=== PATIENT | female | born 1995 | race Hispanic/Latino ===

== ENCOUNTER 2019-11-28 18:49 | Inpatient (IN) | payer SELFPAY ==
[2019-11-28] MEDS ORDERED: NALOXONE 2 MG/2 ML INJ ONE (18:52)
[2019-11-28] MEDS ORDERED: ETOMIDATE 20 MG/10 ML INJ IV ONE (19:00)
[2019-11-28] MEDS ORDERED: ROCURONIUM 50 MG/5 ML INJ IV ONE (19:00)
[2019-11-28] MEDS ORDERED: SODIUM CHLORIDE 0.9% 1000 ML 1,000 ML IV ONE ×2 (19:07→20:16)
[2019-11-28] MEDS ORDERED: MINERAL OIL/PETROLATUM, WHITE OPHTH OINT 3.5 GM OU PRN (19:08)
[2019-11-28] MEDS ORDERED: LIP THERAPY VASELINE TP PRN (19:08)
--- NOTE | 2019-11-28 19:10 | Emergency Department Report ---
ED Altered Mental Status HPI - General Chief Complaint: Altered Mental Status Stated Complaint: AMS PUI?: No Time Seen by Provider: 11/28/19 18:49 Source: EMS Mode of arrival: Stretcher Limitations: Altered Mental Status, Physical Limitation - History of Present Illness Initial Comments: Patient is a 24-year-old female that presents emergency room with possible overdose and altered mental status. Patient is minimally responsive. Patient brought in by EMS. EMS report received. EMS states that the [place] the [place] un[place]. Patient given 3 mg of Narcan with no response by EMS. Patient has an IV. MD Complaint: altered mental status, decreased responsiveness -: Sudden Severity: severe Consistency of Symptoms: getting worse Context: drug abuse - Related Data Allergies Allergy/AdvReac Type Severity Reaction Status Date / Time Unable to Assess Allergy Unverified 11/28/19 19:38 ED Review of Systems ROS: Stated complaint: AMS Other details as noted in HPI Comment: Unobtainable due to pts medical conditions ED Past Medical Hx - Past Medical History Previous Medical History?: No - Surgical History Past Surgical History?: No - Family History Family history: no significant - Social History Smoking Status: Unknown if ever smoked Substance Use Type: Other ED Physical Exam - General General appearance: obtunded - Head Head exam: Present: atraumatic, normocephalic - Eye Eye exam: Present: normal appearance, other (Pupils fixed and pinpoint) - ENT ENT exam: Present: mucous membranes dry - Neck Neck exam: Present: normal inspection - Respiratory Respiratory exam: Present: decreased breath sounds. Absent: respiratory distress, wheezes - Cardiovascular Cardiovascular Exam: Present: regular rate, normal rhythm. Absent: systolic murmur, diastolic murmur, rubs, gallop - GI/Abdominal GI/Abdominal exam: Present: soft, normal bowel sounds - Rectal Rectal exam: Present: deferred - Extremities Exam Extremities exam: Present: normal inspection - Back Exam Back exam: Present: normal inspection - Neurological Exam Neurological exam: Present: altered - Expanded Neurological Exam Expanded Best Eye Response ([place]): (1) no response Best Motor Response ([place]): (1) no motor response Best Verbal Response ([place]): (1) no verbal response [place] Total: 3 - Skin Skin exam: Present: warm, dry, intact, normal color. Absent: rash - Assessment Assessment Interval: Baseline - Level of Consciousness 1a. Level of Consciousness: coma/unresponsive - LOC Questions 1b. LOC Questions: aphasic - LOC Command 1c. LOC Commands: performs no tasks correctly - Best Gaze 2. Best Gaze: normal - Visual 3. Visual: no visual loss - Facial Palsy 4. Facial Palsy: normal symmetrical movement - Motor Arm 5a. Motor Arm Left: no movement 5b. Motor Arm Right: no movement - Motor Leg 6a. Motor Leg Left: no movement 6b. Motor Leg Right: no movement - Limb Ataxia 7. Limb Ataxia: absent - Sensory 8. Sensory: coma/unresponsive - Best Language 9. Best Language: coma/unresponsive - Dysarthria 10. Dysarthria: intubated or other barrier - Extinction and Inattention 11. Extinction/Inattention: no abnormality - Scoring Total Score: 28 Stroke Severity: Severe Stroke ED Course Vital Signs 11/28/19 11/28/19 11/28/19 18:55 19:00 19:15 Pulse Rate 90 86 86 Respiratory 15 15 21 Rate Blood Pressure Blood Pressure 110/62 114/63 136/99 [Left] O2 Sat by Pulse 95 97 100 Oximetry 11/28/19 11/28/19 11/28/19 19:35 19:46 19:48 Pulse Rate 86 91 H 88 Respiratory 22 20 Rate Blood Pressure 136/99 136/99 131/93 Blood Pressure [Left] O2 Sat by Pulse 100 100 Oximetry 11/28/19 11/28/19 11/28/19 20:00 20:14 20:15 Pulse Rate 90 88 87 Respiratory 21 22 Rate Blood Pressure 131/93 139/97 Blood Pressure [Left] O2 Sat by Pulse 100 100 Oximetry 11/28/19 11/28/19 11/28/19 20:45 21:00 21:15 Pulse Rate 83 81 80 Respiratory 22 22 22 Rate Blood Pressure 136/93 138/99 132/94 Blood Pressure [Left] O2 Sat by Pulse 100 100 Oximetry 11/28/19 11/28/19 11/28/19 21:30 21:45 22:00 Pulse Rate 80 82 89 Respiratory 22 22 22 Rate Blood Pressure 126/83 142/95 143/95 Blood Pressure [Left] O2 Sat by Pulse 100 100 Oximetry 11/28/19 11/28/19 11/28/19 22:15 22:30 22:45 Pulse Rate 79 79 77 Respiratory 22 22 22 Rate Blood Pressure 142/97 142/99 143/102 Blood Pressure [Left] O2 Sat by Pulse 100 100 Oximetry 11/28/19 11/28/19 11/28/19 23:00 23:15 23:30 Pulse Rate 81 85 85 Respiratory 22 22 22 Rate Blood Pressure 143/101 142/100 138/93 Blood Pressure [Left] O2 Sat by Pulse 100 100 100 Oximetry 11/29/19 00:17 Pulse Rate 87 Respiratory Rate Blood Pressure 140/94 Blood Pressure [Left] O2 Sat by Pulse 100 Oximetry - Reevaluation(s) Reevaluation #1: Initial evaluation done. Patient minimally responsive. Patient will be intub ated to protect airway. Prior to intubation patient was given 2 more milligrams of Narcan for a total of 5 with no response. Patient has no deep nerve response. Patient completely unresponsive. Patient's GCS is 3. 11/28/19 19:01 Reevaluation #2: Patient back from CT scan. Patient placed on a Ativan drip. Patient still moving. 11/28/19 19:45 Reevaluation #3: Patient still moving. Patient placed on a propofol drip and the patient is resting comfortably. 11/28/19 20:12 - Consultations Consultation #1: Hospitalist consulted for admission. Hospitalist to admit patient. 11/28/19 20:11 - EJ/Peripheral Line Neck L Time Out Performed: Yes Indications: nurses unable to establis Skin Cleansed in Sterile Fashion: Yes Size: 18 Dressing Placed: Tegaderm, tape Patient Tolerated Procedure: well, no complications - Lab Data Result diagrams: 11/28/19 19:23 11/28/19 19:23 Lab Results 11/28/19 11/28/19 11/28/19 Range/Units 19:23 19:23 19:23 WBC 5.6 (4.5-11.0) K/mm3 RBC 4.45 (3.65-5.03) M/mm3 Hgb 10.2 (10.1-14.3) gm/dl Hct 33.1 (30.3-42.9) % MCV 74 L (79-97) fl MCH 23 L (28-32) pg MCHC 31 (30-34) % RDW 22.1 H (13.2-15.2) % Plt Count 295 (140-440) K/mm3 Lymph % (Auto) 29.5 (13.4-35.0) % [place] % (Auto) 5.4 (0.0-7.3) % Eos % (Auto) 2.7 (0.0-4.3) % Baso % (Auto) 0.4 (0.0-1.8) % Lymph # 1.6 (1.2-5.4) K/mm3 [place] # 0.3 (0.0-0.8) K/mm3 Eos # 0.2 (0.0-0.4) K/mm3 Baso # 0.0 (0.0-0.1) K/mm3 Seg Neutrophils % 62.0 (40.0-70.0) % Seg Neutrophils # 3.5 (1.8-7.7) K/mm3 Sodium 142 (137-145) mmol/L Potassium 3.7 (3.6-5.0) mmol/L Chloride 109.1 H (98-107) mmol/L Carbon Dioxide 21 L (22-30) mmol/L Anion Gap 16 mmol/L BUN 14 (7-17) mg/dL Creatinine 0.8 (0.7-1.2) mg/dL Estimated GFR > 60 ml/min BUN/Creatinine Ratio 18 % Glucose 90 (65-100) mg/dL Lactic Acid 1.20 (0.7-2.0) mmol/L Calcium 8.2 L (8.4-10.2) mg/dL Total Bilirubin < 0.20 (0.1-1.2) mg/dL AST 13 (5-40) units/L ALT 7 (7-56) units/L Alkaline Phosphatase 56 (35-129) units/L Ammonia (25-60) umol/L Total Creatine Kinase 59 (30-135) units/L Troponin T < 0.010 (0.00-0.029) ng/mL Total Protein 6.0 L (6.3-8.2) g/dL Albumin 3.7 L (3.9-5) g/dL Albumin/Globulin Ratio 1.6 % Salicylates (2.8-20.0) mg/dL Acetaminophen (10.0-30.0) ug/mL Plasma/Serum Alcohol (0-0.07) % 11/28/19 11/28/19 11/28/19 Range/Units 19:23 19:23 19:23 WBC (4.5-11.0) K/mm3 RBC (3.65-5.03) M/mm3 Hgb (10.1-14.3) gm/dl Hct (30.3-42.9) % MCV (79-97) fl MCH (28-32) pg MCHC (30-34) % RDW (13.2-15.2) % Plt Count (140-440) K/mm3 Lymph % (Auto) (13.4-35.0) % [place] % (Auto) (0.0-7.3) % Eos % (Auto) (0.0-4.3) % Baso % (Auto) (0.0-1.8) % Lymph # (1.2-5.4) K/mm3 [place] # (0.0-0.8) K/mm3 Eos # (0.0-0.4) K/mm3 Baso # (0.0-0.1) K/mm3 Seg Neutrophils % (40.0-70.0) % Seg Neutrophils # (1.8-7.7) K/mm3 Sodium (137-145) mmol/L Potassium (3.6-5.0) mmol/L Chloride (98-107) mmol/L Carbon Dioxide (22-30) mmol/L Anion Gap mmol/L BUN (7-17) mg/dL Creatinine (0.7-1.2) mg/dL Estimated GFR ml/min BUN/Creatinine Ratio % Glucose (65-100) mg/dL Lactic Acid (0.7-2.0) mmol/L Calcium (8.4-10.2) mg/dL Total Bilirubin (0.1-1.2) mg/dL AST (5-40) units/L ALT (7-56) units/L Alkaline Phosphatase (35-129) units/L Ammonia 59.0 (25-60) umol/L Total Creatine Kinase (30-135) units/L Troponin T (0.00-0.029) ng/mL Total Protein (6.3-8.2) g/dL Albumin (3.9-5) g/dL Albumin/Globulin Ratio % Salicylates < 0.3 L (2.8-20.0) mg/dL Acetaminophen < 5.0 L (10.0-30.0) ug/mL Plasma/Serum Alcohol (0-0.07) % 11/28/19 Range/Units 19:23 WBC (4.5-11.0) K/mm3 RBC (3.65-5.03) M/mm3 Hgb (10.1-14.3) gm/dl Hct (30.3-42.9) % MCV (79-97) fl MCH (28-32) pg MCHC (30-34) % RDW (13.2-15.2) % Plt Count (140-440) K/mm3 Lymph % (Auto) (13.4-35.0) % [place] % (Auto) (0.0-7.3) % Eos % (Auto) (0.0-4.3) % Baso % (Auto) (0.0-1.8) % Lymph # (1.2-5.4) K/mm3 [place] # (0.0-0.8) K/mm3 Eos # (0.0-0.4) K/mm3 Baso # (0.0-0.1) K/mm3 Seg Neutrophils % (40.0-70.0) % Seg Neutrophils # (1.8-7.7) K/mm3 Sodium (137-145) mmol/L Potassium (3.6-5.0) mmol/L Chloride (98-107) mmol/L Carbon Dioxide (22-30) mmol/L Anion Gap mmol/L BUN (7-17) mg/dL Creatinine (0.7-1.2) mg/dL Estimated GFR ml/min BUN/Creatinine Ratio % Glucose (65-100) mg/dL Lactic Acid (0.7-2.0) mmol/L Calcium (8.4-10.2) mg/dL Total Bilirubin (0.1-1.2) mg/dL AST (5-40) units/L ALT (7-56) units/L Alkaline Phosphatase (35-129) units/L Ammonia (25-60) umol/L Total Creatine Kinase (30-135) units/L Troponin T (0.00-0.029) ng/mL Total Protein (6.3-8.2) g/dL Albumin (3.9-5) g/dL Albumin/Globulin Ratio % Salicylates (2.8-20.0) mg/dL Acetaminophen (10.0-30.0) ug/mL Plasma/Serum Alcohol < 0.01 (0-0.07) % - EKG Data -: EKG Interpreted by Me EKG shows normal: sinus rhythm, axis, intervals, QRS complexes, ST-T waves Rate: normal - Radiology Data Radiology results: report reviewed, image reviewed interpreted by me: Satisfactory placement of the ET tube on x-ray. NONENHANCED CT SCAN OF THE HEAD: INDICATION / CLINICAL INFORMATION: 89 years Female; MAIN. TECHNIQUE: Routine CT head without contrast. All CT scans at this location are performed using CT dose reduction for ALARA by means of automated exposure control. COMPARISON: None. FINDINGS: BRAIN / INTRACRANIAL CONTENTS: No acute hemorrhage, mass effect, midline shift, hydrocephalus, or acute, large territorial infarct. No chronic infarct or focal atrophy. Normal brain volume and ventricular/sulcal size for age. No significant white matter abnormality. CRANIOCERVICAL JUNCTION: No significant abnormality. ORBITS: No significant abnormality of visualized orbits. SINUSES / MASTOIDS: No significant abnormality of the visualized paranasal sinuses or mastoid air cells. ADDITIONAL FINDINGS: None. IMPRESSION: Normal nonenhanced CT scan of the brain CHEST 1 VIEW INDICATION / CLINICAL INFORMATION: ETT placement. COMPARISON: None available. FINDINGS: SUPPORT DEVICES: Endotracheal tube is present with the tip 3.5 cm above the c robert. NG tube is also present although the tip is not included on this radiograph. The tip is at l east within the proximal portion of the stomach. HEART / MEDIASTINUM: No significant abnormality. LUNGS / PLEURA: No significant pulmonary or pleural abnormality. No pneumothorax. ADDITIONAL FINDINGS: No significant additional findings. IMPRESSION: 1. Satisfactory positioning of endotracheal tube. 2. No acute pulmonary or pleural disease. - Medical Decision Making Patient is a 24-year-old female that presents emergency room with EMS for unresponsiveness. Patient was found in a park by the police and the police called EMS. EMS gave the patient 3 of Narcan and we gave the patient another 2 of Narcan and no response. Patient is minimally responsive. Patient intubated immediately to protect her airway. Patient placed on vent and patient was given an Ativan drip. Patient then started to wake up and the patient was placed on a propofol drip. Patient rested comfortably with the propofol drip and the Ativan drip. Patient's labs unremarkable except for urine drug screen positive for benzo, amphetamines, THC. Patient given fluids in the emergency room. Patient had a chest x-ray which showed satisfactory placement of the ET tube. Patient had a head CT which showed no acute findings. Clinical findings are consistent with altered mental status, unresponsiveness, suspected overdose. Patient admitted to the ICU and to the hospitalist service. - Differential Diagnosis Overdose, altered mental status, unresponsive Critical Care Time: Yes Critical care time in (mins) excluding proc time.: 55 Critical care attestation.: If time is entered above; I have spent that time in minutes in the direct care of this critically ill patient, excluding procedure time. Critical Care Time: 55 minutes ED Disposition Clinical Impression: Unresponsive, Acute hypoxemic respiratory failure, Metabolic encephalopathy Altered mental state Qualifiers: Altered mental status type: unspecified Qualified Code(s): R41.82 - Altered mental status, unspecified Overdose Qualifiers: Encounter type: initial encounter Injury intent: undetermined intent Qualified Code(s): T50.904A - Poisoning by unspecified drugs, medicaments and biological substances, undetermined, initial encounter UTI (urinary tract infection) Qualifiers: Urinary tract infection type: acute cystitis Hematuria presence: with hematuria Qualified Code(s): N30.01 - Acute cystitis with hematuria Disposition: 09 OP ADMIT IP TO THIS HOSP Is pt being admited?: Yes Does the pt Need Aspirin: No Condition: Critical Time of Disposition: 20:15
[2019-11-28 19:33] LABS: Basophils % (Auto) 0.4 % (0.0-1.8); Eosinophils # (Auto) 0.2 K/mm3 (0.0-0.4); Eosinophils % (Auto) 2.7 % (0.0-4.3); Hematocrit 33.1 % (30.3-42.9); Hemoglobin 10.2 gm/dl (10.1-14.3); Lymphocytes # (Auto) 1.6 K/mm3 (1.2-5.4); Lymphocytes % (Auto) 29.5 % (13.4-35.0); Mean Corpuscular HGB Conc 31 % (30-34); Mean Corpuscular Volume 74 fl (79-97); Monocytes # (Auto) 0.3 K/mm3 (0.0-0.8); Monocytes % (Auto) 5.4 % (0.0-7.3); Platelet Count 295 K/mm3 (140-440); Red Blood Count 4.45 M/mm3 (3.65-5.03)
--- NOTE | 2019-11-28 19:41 | XRay Report ---
CHEST 1 VIEW INDICATION / CLINICAL INFORMATION: ETT placement. COMPARISON: None available. FINDINGS: SUPPORT DEVICES: Endotracheal tube is present with the tip 3.5 cm above the hari. NG tube is also p resent although the tip is not included on this radiograph. The tip is at least within the proximal p ortion of the stomach. HEART / MEDIASTINUM: No significant abnormality. LUNGS / PLEURA: No significant pulmonary or pleural abnormality. No pneumothorax. ADDITIONAL FINDINGS: No significant additional findings. IMPRESSION: 1. Satisfactory positioning of endotracheal tube. 2. No acute pulmonary or pleural disease. Signer Name: Kemi Lawton MD Signed: 11/28/2019 7:36 PM Workstation Name: [id number]
[2019-11-28 19:43] LABS: Red Cell Distribution Width 22.1 % (13.2-15.2)
[2019-11-28] MEDS: LORazepam 2 MG/ML VIAL IV PRN ×2 (19:46→20:02)
[2019-11-28] MEDS ORDERED: MIDAZOLAM 5 MG/5 ML INJ MDV IV NR (19:50)
[2019-11-28 19:54] LABS: Alanine Aminotransferase 7 units/L (7-56); Albumin 3.7 g/dL (3.9-5); BUN/Creatinine Ratio 18; Blood Urea Nitrogen 14 mg/dL (7-17); Calcium 8.2 mg/dL (8.4-10.2); Hemolysis Index 11
[2019-11-28] MEDS ORDERED: MIDAZOLAM 5 MG/5 ML INJ MDV IV ONE (19:54)
--- NOTE | 2019-11-28 19:56 | Cat Scan Report ---
NONENHANCED CT SCAN OF THE HEAD: INDICATION / CLINICAL INFORMATION: 89 years Female; MAIN. TECHNIQUE: Routine CT head without contrast. All CT scans at this location are performed using CT dos e reduction for ALARA by means of automated exposure control. COMPARISON: None. FINDINGS: BRAIN / INTRACRANIAL CONTENTS: No acute hemorrhage, mass effect, midline shift, hydrocephalus, or ac song, large territorial infarct. No chronic infarct or focal atrophy. Normal brain volume and ventricu lar/sulcal size for age. No significant white matter abnormality. CRANIOCERVICAL JUNCTION: No significant abnormality. ORBITS: No significant abnormality of visualized orbits. SINUSES / MASTOIDS: No significant abnormality of the visualized paranasal sinuses or mastoid air supriya ls. ADDITIONAL FINDINGS: None. IMPRESSION: Normal nonenhanced CT scan of the brain Signer Name: Mars Rubalcava MD Signed: 11/28/2019 7:51 PM Workstation Name: [id number]
[2019-11-28] MEDS: LORazepam 100 MG in SODIUM CHLORIDE 0.9% 50 ML, EMPTY BAG 0 ML IV SCH (20:05)
--- NOTE | 2019-11-28 20:14 | History and Physical Report ---
History of Present Illness Chief complaint: Unresponsive History of present illness: 24 YO Female presents to ED for evaluation. Patient is intubated and on ventilatory support at the time of my evaluation and is unable to provide history at the time of my evaluation. Patient history taken from EMS staff, and ED staff. As per staff, the patient was found down and unresponsive after a call to EMS. Upon arrival the patient was found to be in distress and subsequently transported to [facility] for further care and evaluation. Patient seen and evaluated in the emergency department. Lab and imaging studies reviewed. Patient was found to be in distress and I able to protect her airway. Patient intubated and placed on ventilatory support. Patient also found to have metabolic encephalopathy suspected secondary to possible drug overdose. Patient admitted to critical care unit. Critical care team noted consulted in ED. No further history obtainable. No prior admission for review. No medication listed at time of my admission for reconciliation. Past History Past Medical History: No medical history, other (Unable to obtain) Past Surgical History: No surgical history, Other (Unable to obtain) Social history: no significant social history, other (Unable to obtain) Family history: no significant family history, other (Unable to obtain) Medications and Allergies Allergies Allergy/AdvReac Type Severity Reaction Status Date / Time Unable to Assess Allergy Unverified 11/28/19 19:38 Active Meds: Active Medications Hydrophilic Ointment (Vaseline Lip Therapy) 1 applic TP Q2HR PRN PRN Reason: Dry Lips Lorazepam 100 mg/ Sodium Chloride/ Miscellaneous Information 100 mls @ 1 mls/hr IV TITR JOHN; Protocol Lorazepam (Ativan) 2 mg IV Q10MIN PRN PRN Reason: Agitation Last Admin: 11/28/19 19:46 Dose: 2 mg Documented by: Multi-Ingred Cream/Lotion/Oil/Oint (Artificial Tears Ophth Oint) 1 applic OU Q4HR PRN PRN Reason: Dry Eye(s) Review of Systems ROS unobtainable: due to endotracheal tube, due to mental status Exam - Constitutional Vitals: Temp Pulse Resp BP Pulse Ox 88 21 131/93 100 11/28/19 19:48 11/28/19 19:15 11/28/19 19:48 11/28/19 19:48 General appearance: Present: severe distress, disheveled - EENT Eyes: Present: miosis ENT: hearing decreased - Neck Neck: Present: supple, normal ROM - Respiratory Respiratory effort: labored, accessory muscle use Respiratory: bilateral: diminished - Cardiovascular Heart Sounds: Present: S1 & S2. Absent: rub, click - Extremities Extremities: pulses symmetrical, No edema Peripheral Pulses: within normal limits - Abdominal General gastrointestinal: Present: soft, non-tender, non-distended, normal bowel sounds Female genitourinary: Present: normal - Integumentary Integumentary: Present: clear, warm, dry - Musculoskeletal Musculoskeletal: generalized weakness - Psychiatric Psychiatric: no appropriate mood/affect, no intact judgment & insight, no memory intact - Neurologic Neurologic: CNII-XII intact, moves all extremities, no gait normal HEART Score - HEART Score Troponin: Troponin T < 0.010 ng/mL (0.00-0.029) 11/28/19 19: Results - Labs CBC & Chem 7: 11/28/19 19:23 11/28/19 19:23 Labs: Abnormal lab results 11/28/19 11/28/19 11/28/19 Range/Units 19:23 19:23 19:23 MCV 74 L (79-97) fl MCH 23 L (28-32) pg RDW 22.1 H (13.2-15.2) % Chloride 109.1 H (98-107) mmol/L Carbon Dioxide 21 L (22-30) mmol/L Calcium 8.2 L (8.4-10.2) mg/dL Total Protein 6.0 L (6.3-8.2) g/dL Albumin 3.7 L (3.9-5) g/dL Salicylates < 0.3 L (2.8-20.0) mg/dL Acetaminophen (10.0-30.0) ug/mL 11/28/19 Range/Units 19:23 MCV (79-97) fl MCH (28-32) pg RDW (13.2-15.2) % Chloride (98-107) mmol/L Carbon Dioxide (22-30) mmol/L Calcium (8.4-10.2) mg/dL Total Protein (6.3-8.2) g/dL Albumin (3.9-5) g/dL Salicylates (2.8-20.0) mg/dL Acetaminophen < 5.0 L (10.0-30.0) ug/mL Assessment and Plan - Patient Problems (1) Acute hypoxemic respiratory failure Status: Acute Plan to address problem: Patient intubated, and on ventilatory support. Wean vent as tolerated, critical care team consulted, sedation holiday, ABG as per protocol, spontaneous breathing trial daily, The high probability of a clinically significant, sudden or life threatening deterioration of the [pulmonary, neuro,] system(s) required my full and direct attention, intervention and personal management. The aggregate critical care time was [95] minutes. This time is in addition to time spent performing reported procedures but includes the following: [x] Data Review and interpretation [x] Patient assessment and monitoring of vital signs [x] Documentation [x] Medication orders and management (2) Metabolic encephalopathy Status: Acute Plan to address problem: CT head, neuro check, CBC, CMP, supportive care. (3) DVT prophylaxis Status: Acute Plan to address problem: SCD to bilateral lower extremities while in bed, prophylactic heparin.
[2019-11-28 20:33] LABS: HCG Qualitative,Urine Negative (Negative)
[2019-11-28 20:38] LABS: Bacteria,Urine 1+ /HPF (Negative); Bilirubin,Urine NEG (Negative); Blood,Urine SM (Negative); Color,Urine Yellow (Yellow); Mucus,Urine 3+ /HPF
[2019-11-28 20:42] LABS: Amphetamine Screen,Urine PRESUMPTIVE POSITIVE; Benzodiazepines Screen,Urine PRESUMPTIVE POSITIVE; Cannabinoid Screen,Urine PRESUMPTIVE POSITIVE; Cocaine Screen,Urine PRESUMPTIVE NEGATIVE; Methadone Screen,Urine PRESUMPTIVE NEGATIVE; Opiate Screen,Urine PRESUMPTIVE NEGATIVE
[2019-11-28 21:40] LABS: ABG Base Excess -5.1 mmol/L (-2.0-3.0); ABG HCO3 18.3 mmol/L (20.0-26.0); ABG Methemoglobin 0.5 % (0.0-1.5); ABG Oxygen Saturation 99.3 % (95.0-99.0); ABG PCO2 28.5 mm Hg; ABG PH 7.426 pH Units (7.350-7.450); ABG PO2 200.5 mm Hg (80.0-90.0)
[2019-11-29] MEDS ORDERED: CEFEPIME/NS 2 GM/100 ML 2 GM/100 ML BAG IV ONE ×2 (00:50→04:31)
[2019-11-29] MEDS ORDERED: SODIUM CHLORIDE 0.9% 1000 ML 1,000 ML IV ONE ×2 (01:43)
[2019-11-29] MEDS ORDERED: SODIUM CHLORIDE 0.9% 1000 ML 1,000 ML ONE ×2 (01:47→01:51)
[2019-11-29] MEDS ORDERED: HEPARIN 5,000 UNIT/1 ML VIAL ONE ×2 (04:28→10:29)
[2019-11-29] MEDS ORDERED: CEFEPIME/NS 1 GM/100 ML 0 GM/0 ML BAG IV ONE (04:28)
[2019-11-29] MEDS: HEPARIN 5,000 UNIT/1 ML VIAL SUB-Q SCH ×2 (04:38→10:29)
[2019-11-29 06:23] LABS: ABG Base Excess -5.2 mmol/L (-2.0-3.0); ABG HCO3 18.3 mmol/L (20.0-26.0); ABG Methemoglobin 0.5 % (0.0-1.5); ABG PCO2 28.3 mm Hg; ABG PH 7.429 pH Units (7.350-7.450)
[2019-11-29] MEDS: LORazepam 100 MG in SODIUM CHLORIDE 0.9% 50 ML, EMPTY BAG 0 ML IV SCH (10:29)
--- NOTE | 2019-11-29 13:24 | Consultation ---
History of Present Illness Consult date: 11/29/19 Requesting physician: ANGELIA SCHNEIDER History of present illness: 24 YO Female presents to ED for evaluation. Patient is intubated and on ventila tory support at the time of my evaluation and is unable to provide history at the time of my evaluation. Patient history taken from EMS staff, and ED staff. As per staff, the patient was found down and unresponsive after a call to EMS. Upon arrival the patient was found to be in distress and subsequently transported to [facility] for further care and evaluation. Patient seen and evaluated in the emergency department. Lab and imaging studies reviewed. Patient was found to be in distress and I able to protect her airway. Patient intubated and placed on ventilatory support. Patient also found to have metabolic encephalopathy suspected secondary to possible drug overdose. Patient admitted to critical care unit. Ayo was seen and examined. Sedated on Lorazepam and Propofol, on MVS unable to give any history Past History Past Medical History: No medical history, other (Unable to obtain) Past Surgical History: No surgical history, Other (Unable to obtain) Social history: no significant social history, other (Unable to obtain) Family history: no significant family history, other (Unable to obtain) Medications and Allergies Allergies Allergy/AdvReac Type Severity Reaction Status Date / Time Unable to Assess Allergy Unverified 11/28/19 19:38 Active Meds: Active Medications Famotidine (Pepcid) 20 mg IV BID JOHN Heparin Sodium (Porcine) (Heparin) 5,000 unit SUB-Q Q12HR JOHN Last Admin: 11/29/19 10:29 Dose: 5,000 unit Documented by: Hydrophilic Ointment (Vaseline Lip Therapy) 1 applic TP Q2HR PRN PRN Reason: Dry Lips Lorazepam 100 mg/ Sodium Chloride/ Miscellaneous Information 100 mls @ 1 mls/hr IV TITR JOHN; Protocol Last Admin: 11/29/19 10:29 Dose: 5 mg/hr, 5 mls/hr Documented by: Propofol (Diprivan 10 Mg/Ml) 1,000 mg in 100 mls @ 1.81 mls/hr IV TITR JOHN; Protocol Last Admin: 11/29/19 09:14 Dose: 50 mcg/kg/min, 18.098 mls/hr Documented by: Lorazepam (Ativan) 2 mg IV Q10MIN PRN PRN Reason: Agitation Last Admin: 11/28/19 20:02 Dose: 2 mg Documented by: Multi-Ingred Cream/Lotion/Oil/Oint (Artificial Tears Ophth Oint) 1 applic OU Q4HR PRN PRN Reason: Dry Eye(s) Sodium Chloride (Sodium Chloride Flush Syringe 10 Ml) 10 ml IV BID JOHN Last Admin: 11/29/19 10:29 Dose: 10 ml Documented by: Sodium Chloride (Sodium Chloride Flush Syringe 10 Ml) 10 ml IV PRN PRN PRN Reason: LINE FLUSH Last Admin: 11/29/19 10:28 Dose: 10 ml Documented by: Review of Systems ROS unobtainable: due to endotracheal tube, due to mental status Physical Examination Vital signs: Vital Signs Pulse Resp BP Pulse Ox 90 15 110/62 95 11/28/19 18:55 11/28/19 18:55 11/28/19 18:55 11/28/19 18:55 Vitals reviewed General appearance: Present: sedated, disheveled - EENT Eyes: Present: miosis ENT: hearing decreased - Neck Neck: Present: supple, normal ROM - Respiratory Respiratory effort: labored, accessory muscle use Respiratory: bilateral: diminished - Cardiovascular Heart Sounds: Present: S1 & S2. Absent: rub, click - Extremities Extremities: pulses symmetrical, No edema Peripheral Pulses: within normal limits - Abdominal General gastrointestinal: Present: soft, non-tender, non-distended, normal bowel sounds Female genitourinary: Present: normal - Integumentary Integumentary: Present: clear, warm, dry - Musculoskeletal Musculoskeletal: unable to assess, sedated - Psychiatric Psychiatric: Unable to assess, sedated - Neurologic Neurologic: Unable to assess, sedated Results - Laboratory Findings CBC and BMP: 11/28/19 19:23 11/28/19 19:23 ABG ABG pH 7.429 pH Units (7.350-7.450) 11/29/19 06:10 ABG pCO2 28.3 mm Hg 11/29/19 06:10 ABG pO2 107.0 mm Hg (80.0-90.0) H 11/29/19 06:10 ABG O2 Saturation 98.0 % (95.0-99.0) 11/29/19 06:10 Abnormal lab findings: Abnormal Labs 11/28/19 11/28/19 11/28/19 19:23 19:23 19:23 MCV 74 L MCH 23 L RDW 22.1 H ABG pO2 ABG HCO3 ABG O2 Saturation ABG Base Excess ABG Hemoglobin Chloride 109.1 H Carbon Dioxide 21 L Calcium 8.2 L Total Protein 6.0 L Albumin 3.7 L Urine WBC (Auto) Salicylates < 0.3 L Acetaminophen 11/28/19 11/28/19 11/28/19 19:23 21:25 Unknown MCV MCH RDW ABG pO2 200.5 H ABG HCO3 18.3 L ABG O2 Saturation 99.3 H ABG Base Excess -5.1 L ABG Hemoglobin 9.5 L Chloride Carbon Dioxide Calcium Total Protein Albumin Urine WBC (Auto) 26.0 H Salicylates Acetaminophen < 5.0 L 11/29/19 06:10 MCV MCH RDW ABG pO2 107.0 H ABG HCO3 18.3 L ABG O2 Saturation ABG Base Excess -5.2 L ABG Hemoglobin 8.6 L Chloride Carbon Dioxide Calcium Total Protein Albumin Urine WBC (Auto) Salicylates Acetaminophen - Diagnostic Findings Chest x-ray: image reviewed Assessment and Plan Acute hypoxemic respiratory failure, orally intubated on MVS Acute toxic-metabolic encephalopathy Probable Overdose - Wean supplemental oxygen for target O2 sats > 92% -Stop all sedation, SBT and goal to liberate from MVS - VAP bundle addressed - Lung protective strategies -Fluid conservative measures as tolerated by hemodynamics and renal function - Bronchodilators with pulmonary hygiene per RT - Accuchecks with glycemic control per SSI (While critically ill target blood glucose of 140-180 mg/dL; avoid hypoglycemia) - Avoid benzodiazepines, reduce the possibility of delirium -Aspiration precautions, HOB >40 - Stress ulcer & VTE prophylaxis ( Heparin, Famotidine) - Mobility protocol, off loading and skin assessment for pressure ulcer prevention - Monitor hemodynamics closely -Supportive transfusions as indicated to keep HgB >7g/dL -Once extubated, bedside swallow function then initiate oral feeding -ABG, CXR in am -Neurochecks Discussed with the ED team-RTRN Life threatening condition- acute hypoxemic respiratory failure on MVS Mortality/Morbidity- High Complexity of medical decision making- High CONDITION: CRITICAL PROGNOSIS: GUARDED CODE STATUS: FULL CODE The high probability of a clinically significant, sudden or life-threatening deterioration of the [respiratory & cardiovascular, renal] system(s) required my full and direct attention, intervention and personal management. The aggregate critical care time was [35] minutes without overlap. Time includes spent on; [x] Data Review and interpretation [x] Patient assessment and monitoring of vital signs [x] Documentation [x] Medication orders and management
--- NOTE | 2019-11-29 13:39 | Progress Note ---
Assessment and Plan - Patient Problems (1) Acute hypoxemic respiratory failure Current Visit: Yes Status: Acute Plan to address problem: Resolved. Pt self extubated. Pt downgraded to medical floor. (2) Metabolic encephalopathy Current Visit: Yes Status: Acute Plan to address problem: Resolved, Pt alert, awake. ambulating in hallway. (3) DVT prophylaxis Current Visit: No Status: Acute Plan to address problem: SCD to bilateral lower extremities while in bed, prophylactic heparin. History Interval history: 24 YO Female HD #2 with resolved Acute Hypoxemic Respiratory Failure, Metabolic encephalopathy suspected secondary to possible drug overdose. Patient self extubated today. Pt is alert and ambulating in hallway. Pt denies SI/HI at time of my evaluation. Pt denies pain. Hospitalist Physical - Constitutional Vitals: Temp Pulse Resp BP Pulse Ox 90 18 144/92 100 11/29/19 12:23 11/29/19 09:30 11/29/19 12:23 11/29/19 12:23 General appearance: Present: disheveled, malodorous - EENT Eyes: Present: PERRL, EOM intact ENT: hearing intact - Neck Neck: Present: supple - Respiratory Respiratory: bilateral: CTA - Cardiovascular Rhythm: regular Heart Sounds: Present: S1 & S2 - Extremities Extremities: no ischemia Peripheral Pulses: within normal limits - Abdominal General gastrointestinal: soft, non-tender, non-distended - Integumentary Integumentary: Present: clear, warm, dry - Psychiatric Psychiatric: appropriate mood/affect, intact judgment & insight, cooperative - Neurologic Neurologic: CNII-XII intact, no focal deficits, moves all extremities HEART Score - HEART Score Troponin: Troponin T < 0.010 ng/mL (0.00-0.029) 11/28/19 19:23 Results - Labs CBC & Chem 7: 11/28/19 19:23 11/28/19 19:23 Labs: Laboratory Last Values WBC 5.6 K/mm3 (4.5-11.0) 11/28/19 19:23 RBC 4.45 M/mm3 (3.65-5.03) 11/28/19 19:23 Hgb 10.2 gm/dl (10.1-14.3) 11/28/19 19:23 Hct 33.1 % (30.3-42.9) 11/28/19 19:23 MCV 74 fl (79-97) L 11/28/19 19: MCH 23 pg (28-32) L 11/28/19 19: MCHC 31 % (30-34) 11/28/19 19: RDW 22.1 % (13.2-15.2) H 11/28/19 19: Plt Count 295 K/mm3 (140-440) 11/28/19 19: Lymph % (Auto) 29.5 % (13.4-35.0) 11/28/19 19:23 [place] % (Auto) 5.4 % (0.0-7.3) 11/28/19 19: Eos % (Auto) 2.7 % (0.0-4.3) 11/28/19: Baso % (Auto) 0.4 % (0.0-1.8) 11/28/19 19: Lymph # 1.6 K/mm3 (1.2-5.4) 11/28/19 19: [place] # 0.3 K/mm3 (0.0-0.8) 11/28/19 19: Eos # 0.2 K/mm3 (0.0-0.4) 11/28/19 19: Baso # 0.0 K/mm3 (0.0-0.1) 11/28/19 19: Seg Neutrophils % 62.0 % (40.0-70.0) 11/28/19: Seg Neutrophils # 3.5 K/mm3 (1.8-7.7) 11/28/19: ABG pH 7.429 pH Units (7.350-7.450) 11/29/19 06:10 ABG pCO2 28.3 mm Hg 11/29/19 06:10 ABG pO2 107.0 mm Hg (80.0-90.0) H 11/29/19 06:10 ABG HCO3 18.3 mmol/L (20.0-26.0) L 11/29/19 06:10 ABG O2 Saturation 98.0 % (95.0-99.0) 11/29/19 06:10 ABG O2 Content 11.9 (0.0-44) 11/29/19 06:10 ABG Base Excess -5.2 mmol/L (-2.0-3.0) L 11/29/19 06:10 ABG Hemoglobin 8.6 gm/dl (12.0-16.0) L 11/29/19 06:10 ABG Carboxyhemoglobin 1.1 % (0.0-5.0) 11/29/19 06:10 ABG Methemoglobin 0.5 % (0.0-1.5) 11/29/19 06:10 Oxyhemoglobin 96.4 % (95.0-99.0) 11/29/19 06:10 FiO2 25 % 11/29/19 06:10 Sodium 142 mmol/L (137-145) 11/28/19 19:23 Potassium 3.7 mmol/L (3.6-5.0) 11/28/19 19:23 Chloride 109.1 mmol/L (98-107) H 11/28/19 19:23 Carbon Dioxide 21 mmol/L (22-30) L 11/28/19 19:23 Anion Gap 16 mmol/L 11/28/19 19:23 BUN 14 mg/dL (7-17) 11/28/19 19:23 Creatinine 0.8 mg/dL (0.7-1.2) 11/28/19 19:23 Estimated GFR > 60 ml/min 11/28/19 19:23 BUN/Creatinine Ratio 18 % 11/28/19 19:23 Glucose 90 mg/dL (65-100) 11/28/19 19:23 Lactic Acid 1.20 mmol/L (0.7-2.0) 11/28/19 19:23 Calcium 8.2 mg/dL (8.4-10.2) L 11/28/19 19:23 Total Bilirubin < 0.20 mg/dL (0.1-1.2) 11/28/19 19:23 AST 13 units/L (5-40) 11/28/19 19:23 ALT 7 units/L (7-56) 11/28/19 19:23 Alkaline Phosphatase 56 units/L (35-129) 11/28/19 19:23 Ammonia 59.0 umol/L (25-60) 11/28/19 19:23 Total Creatine Kinase 59 units/L (30-135) 11/28/19 19:23 Troponin T < 0.010 ng/mL (0.00-0.029) 11/28/19 19:23 Total Protein 6.0 g/dL (6.3-8.2) L 11/28/19 19:23 Albumin 3.7 g/dL (3.9-5) L 11/28/19 19:23 Albumin/Globulin Ratio 1.6 % 11/28/19 19:23 Urine Color Yellow (Yellow) 11/28/19 Unknown Urine Turbidity Cloudy (Clear) 11/28/19 Unknown Urine pH 5.0 (5.0-7.0) 11/28/19 Unknown Ur Specific [place] 1.029 (1.003-1.030) 11/28/19 Unknown Urine Protein 30 mg/dl mg/dL (Negative) 11/28/19 Unknown Urine Glucose (UA) Neg mg/dL (Negative) 11/28/19 Unknown Urine Ketones Tr mg/dL (Negative) 11/28/19 Unknown Urine Blood Sm (Negative) 11/28/19 Unknown Urine Nitrite Neg (Negative) 11/28/19 Unknown Ur Reducing Substances Not Reportable 11/28/19 Unknown Urine Bilirubin Neg (Negative) 11/28/19 Unknown Urine Ictotest Not Reportable 11/28/19 Unknown Urine Urobilinogen 4.0 mg/dL (<2.0) 11/28/19 Unknown Ur Leukocyte Esterase Mod (Negative) 11/28/19 Unknown Urine WBC (Auto) 26.0 /HPF (0.0-6.0) H 11/28/19 Unknown Urine RBC (Auto) 32.0 /HPF (0.0-6.0) 11/28/19 Unknown U Epithel Cells (Auto) 12.0 /HPF (0-13.0) 11/28/19 Unknown Urine Bacteria (Auto) 1+ /HPF (Negative) 11/28/19 Unknown Urine Mucus 3+ /HPF 11/28/19 Unknown Urine HCG, Qual Negative (Negative) 11/28/19 Unknown Salicylates < 0.3 mg/dL (2.8-20.0) L 11/28/19 19:23 Urine Opiates Screen Presumptive negative 11/28/19 Unknown Urine Methadone Screen Presumptive negative 11/28/19 Unknown Acetaminophen < 5.0 ug/mL (10.0-30.0) L 11/28/19 19:23 Ur Barbiturates Screen Presumptive negative 11/28/19 Unknown Ur Phencyclidine Scrn Presumptive negative 11/28/19 Unknown Ur Amphetamines Screen Presumptive positive 11/28/19 Unknown U Benzodiazepines Scrn Presumptive positive 11/28/19 Unknown Urine Cocaine Screen Presumptive negative 11/28/19 Unknown U Marijuana (THC) Screen Presumptive positive 11/28/19 Unknown Drugs of Abuse Note Disclamer 11/28/19 Unknown Plasma/Serum Alcohol < 0.01 % (0-0.07) 11/28/19 19:23 Microbiology: Microbiology 11/28/19 19:23 Peripheral/Venous Blood Culture - Preliminary Culture in Progress 11/28/19 19:27 Peripheral/Venous Blood Culture - Preliminary Culture in Progress Sofia/IV: IV Catheter Type [Left INT / Saline Lock Antecubital] Active Medications - Current Medications Current Medications: Generic Name Dose Route Start Last Admin Trade Name Freq PRN Reason Stop Dose Admin Famotidine 20 mg 11/29/19 13:00 Pepcid IV BID JOHN Heparin Sodium (Porcine) 5,000 unit 11/28/19 22:00 11/29/19 10:29 Heparin SUB-Q 5,000 unit Q12HR JOHN Administration Hydrophilic Ointment 1 applic 11/28/19 19:08 Vaseline Lip Therapy TP Q2HR PRN Dry Lips Lorazepam 100 mg/ Sodium 100 mls @ 1 mls/hr 11/28/19 20:00 11/29/19 10:29 Chloride/ Miscellaneous IV 5 mg/hr Information TITR JOHN 5 mls/hr Administration Protocol 1 MG/HR Propofol 1,000 mg in 100 mls @ 1.81 mls/hr 11/28/19 20:00 11/29/19 09:14 Diprivan 10 Mg/Ml IV 50 mcg/kg/min TITR JOHN 18.098 mls/hr Administration Protocol 5 MCG/KG/MIN Lorazepam 2 mg 11/28/19 19:08 11/28/19 20:02 Ativan IV 2 mg Q10MIN PRN Administration Agitation Multi-Ingred Cream/Lotion/Oil/Oint 1 applic 11/28/19 19:08 Artificial Tears Ophth Oint OU Q4HR PRN Dry Eye(s) Sodium Chloride 10 ml 11/28/19 22:00 11/29/19 10:29 Sodium Chloride Flush Syringe 10 Ml IV 10 ml BID JOHN Administration Sodium Chloride 10 ml 11/28/19 20:14 11/29/19 10:28 Sodium Chloride Flush Syringe 10 Ml IV 10 ml PRN PRN Administration LINE FLUSH
[2019-11-29] MEDS ORDERED: FAMOTIDINE 20 MG/2 ML INJ IV ONE (13:51)
[2019-11-29] MEDS: FAMOTIDINE 20 MG/2 ML INJ IV SCH (13:54)
[2019-11-30 06:51] VITALS: BP 117/63
[2019-11-30] MEDS: FAMOTIDINE 20 MG/2 ML INJ IV SCH (07:25)
[2019-11-30] MEDS: HEPARIN 5,000 UNIT/1 ML VIAL SUB-Q SCH (07:25)
--- NOTE | 2019-11-30 09:38 | Progress Note ---
Assessment and Plan Acute hypoxemic respiratory failure, s/p MVS Acute toxic-metabolic encephalopathy, resolved Probable Overdose Self extubated Stable from a pulmonary standpoint Psych evaluation as indicated No longer needing ICU level of care Discharge planning Discussed with primary Attending Discussed with the ED team-ELIAS KISER Subjective Date of service: 11/30/19 Interval history: Follow up for: Acute hypoxemic respiratory failure, s/p MVS Acute toxic-metabolic encephalopathy Probable Overdose Seen and examined. Nursing staff consulted. Patient has been belligerent, was placed in the PSYCH section of the EED. No adverse overnight events. Objective - Exam Narrative Exam: Vitals reviewed General appearance: Present: disheveled - EENT Eyes: Present: PERRL, EOM intact ENT: hearing intact - Neck Neck: Present: supple - Respiratory Respiratory: bilateral: CTA - Cardiovascular Rhythm: regular Heart Sounds: Present: S1 & S2 - Extremities Extremities: no ischemia Peripheral Pulses: within normal limits - Abdominal General gastrointestinal: soft, non-tender, non-distended - Integumentary Integumentary: Present: clear, warm, dry - Psychiatric Psychiatric: appropriate mood/affect, - Neurologic Neurologic: CNII-XII intact, no focal deficits, moves all extremities Vital Signs - 12hr 11/30/19 11/30/19 00:00 06:00 Temperature 98.0 F 97.7 F Pulse Rate 95 H 96 H Respiratory 20 20 Rate Blood Pressure 112/70 117/63 [Left] O2 Sat by Pulse 98 98 Oximetry CBC and BMP: 11/28/19 19:23 11/28/19 19:23 ABG, PT/INR, D-dimer: ABG ABG pH 7.429 pH Units (7.350-7.450) 11/29/19 06:10 ABG pCO2 28.3 mm Hg 11/29/19 06:10 ABG pO2 107.0 mm Hg (80.0-90.0) H 11/29/19 06:10 ABG O2 Saturation 98.0 % (95.0-99.0) 11/29/19 06:10 Abnormal lab findings: Abnormal Labs 11/28/19 11/28/19 11/28/19 19:23 19:23 19:23 MCV 74 L MCH 23 L RDW 22.1 H ABG pO2 ABG HCO3 ABG O2 Saturation ABG Base Excess ABG Hemoglobin Chloride 109.1 H Carbon Dioxide 21 L Calcium 8.2 L Total Protein 6.0 L Albumin 3.7 L Urine WBC (Auto) Salicylates < 0.3 L Acetaminophen 11/28/19 11/28/19 11/28/19 19:23 21:25 Unknown MCV MCH RDW ABG pO2 200.5 H ABG HCO3 18.3 L ABG O2 Saturation 99.3 H ABG Base Excess -5.1 L ABG Hemoglobin 9.5 L Chloride Carbon Dioxide Calcium Total Protein Albumin Urine WBC (Auto) 26.0 H Salicylates Acetaminophen < 5.0 L 11/29/19 06:10 MCV MCH RDW ABG pO2 107.0 H ABG HCO3 18.3 L ABG O2 Saturation ABG Base Excess -5.2 L ABG Hemoglobin 8.6 L Chloride Carbon Dioxide Calcium Total Protein Albumin Urine WBC (Auto) Salicylates Acetaminophen
== END 2019-11-30 11:49 | disposition left against medical advice (07) | DRG 917 ==
LOC: ED 18:49 → CC1 20:14 → EDBD 20:14 → EEVIPCON 20:14 → CC1 11-29 12:36
PROVIDERS: ADMIT Internal Medicine; ATTEND Internal Medicine
PROC: 4A033R1 Measurement of Arterial Saturation, Peripheral, Percutaneous Approach (ICD-10-PCS; principal; 2019-11-28)
PROC: 5A1935Z Respiratory Ventilation, Less than 24 Consecutive Hours (ICD-10-PCS; 2019-11-28)
DX: T50.991A Poisoning by other drugs, medicaments and biological substances, accidental (unintentional), initial encounter (principal); J96.01 Acute respiratory failure with hypoxia; G92 Toxic encephalopathy; Y92.89 Other specified places as the place of occurrence of the external cause; Z53.29 Procedure and treatment not carried out because of patient's decision for other reasons
CPT/HCPCS: 36415; 36600; 70450; 71045; 80053; 80307; 80320; 81001; 81025; 82140; 82550; 82803; 84484; 85025; 87040; 87070; 87076; 87086; 87186; 87205; 93005; 94002; 94003; G0378; G0480; J0692; J1644; J2060; J2250; J2310; J2704; J7030

== ENCOUNTER 2021-04-27 18:28 | Outpatient (CLI) | payer SELFPAY ==
[2021-04-27 19:08] VITALS: BP 131/70
[2021-04-27 20:44] LABS: Bilirubin,Urine NEG (Negative); Blood,Urine NEG (Negative); Color,Urine Yellow (Yellow); Mucus,Urine FEW /HPF; Protein,Urine <15 mg/dL mg/dL (Negative); Urobilinogen,Urine < 2.0 mg/dL (<2.0)
[2021-04-27 21:41] LABS: Hematocrit 30.5 % (30.3-42.9); Hemoglobin 9.8 gm/dl (10.1-14.3); Mean Corpuscular HGB Conc 32 % (30-34); Mean Corpuscular Volume 79 fl (79-97); Platelet Count 237 K/mm3 (140-440); Red Blood Count 3.86 M/mm3 (3.65-5.03); Red Cell Distribution Width 16.6 % (13.2-15.2)
[2021-04-27 22:11] LABS: Hepatitis C Virus Antibody Non-Reactive (NonReactive)
[2021-04-27 23:20] LABS: Amphetamine Screen,Urine PRESUMPTIVE POSITIVE; Benzodiazepines Screen,Urine PRESUMPTIVE NEGATIVE; Cannabinoid Screen,Urine PRESUMPTIVE NEGATIVE; Cocaine Screen,Urine PRESUMPTIVE NEGATIVE; Methadone Screen,Urine PRESUMPTIVE NEGATIVE; Opiate Screen,Urine PRESUMPTIVE NEGATIVE
[2021-04-28 00:31] LABS: Hypochromasia 1+; Total Cells Counted 100
[2021-04-28 00:33] LABS: Ovalocytes Few; Platelet Estimate Consistent w Auto
== END 2021-04-27 22:00 | disposition left against medical advice (07) ==
LOC: TRG 18:28 → APU 18:29 → TRG 22:00
PROVIDERS: ATTEND Obstetrics & Gynecology
DX: Z34.93 Encounter for supervision of normal pregnancy, unspecified, third trimester (principal); Z3A.36 36 weeks gestation of pregnancy
CPT/HCPCS: 36415; 80307; 81001; 82962; 83036; 85007; 85025; 86592; 86706; 86762; 86803; 86850; 86900; 86901; 87086; 87116; 87806

== ENCOUNTER 2021-05-21 08:45 | Outpatient (CLI) | payer OTHER ==
[2021-05-21 09:36] VITALS: BP 130/78
--- NOTE | 2021-05-21 11:29 | Ultrasound Report ---
ULTRASOUND OBSTETRIC LIMITED ULTRASOUND BIOPHYSICAL PROFILE INDICATION / CLINICAL INFORMATION: DECREASED MOVEMENT, NO PNC, 40.1 - KANG. Clinical Gestational Age (GA): 40.1 weeks.days COMPARISON: None available. FINDINGS: BREATHING MOVEMENT = 2 GROSS BODY MOVEMENT = 2 TONE = 2 QUALITATIVE AMNIOTIC FLUID VOLUME = 2 TOTAL BIOPHYSICAL SCORE = 8/8 HEART RATE (beats per minute): 141 AMNIOTIC FLUID INDEX (cm) = 15.1 (normal = 7-24 cm) PRESENTATION: Cephalic. ADDITIONAL FINDINGS: None. IMPRESSION: 1. Biophysical Score = 8/8 Signer Name: Jason Lora MD Signed: 05/21/2021 11:25 AM Workstation Name: [id number]
== END 2021-05-21 11:35 | disposition home or self-care (01) ==
LOC: TRG 08:45 → APU 08:47 → TRG 11:35
PROVIDERS: ATTEND Obstetrics & Gynecology
DX: O36.8130 Decreased fetal movements, third trimester, not applicable or unspecified (principal); Z3A.40 40 weeks gestation of pregnancy
CPT/HCPCS: 59025; 76815; 76819